=== PATIENT | female | born 1950 | race Caucasian/White ===

== ENCOUNTER 2024-01-18 16:18 | Emergency (ER) | payer OTHER, SELFPAY ==
[2024-01-18] VITALS (8 sets, daily range): BP systolic 131–140; BP diastolic 74–77; PULSE 79–86; RESP 18; TEMP 36.4; O2SAT 91–100
--- NOTE | ~2024-01-18 | CT_ITS ---
EXAMINATION: CT brain wo con DATE: 01/18/2024 16:45 INDICATION: Head injury TECHNIQUE: Computed tomography (CT) of the head was performed without intravenous contrast. The mA wa s adjusted according to patient size. Iterative reconstruction technique was employed. Exam dose: 60 5.33 mGy-cm total exam DLP. COMPARISON: None FINDINGS: There is a posterior left parietal cephalohematoma. No coup or contrecoup intracranial inju ry is detected. No intracranial mass lesion or hemorrhage or cerebrovascular accident is detected. Normal ventricular size. No subdural or epidural hematoma. There is vertebral and carotid siphon internal carotid artery calcification. There is nonspecific dim inished attenuation the cerebral white matter, likely due to chronic small vessel ischemic changes. The included paranasal sinuses and the mastoid air cells are normally developed and aerated. There is a an approximately 2.3 cm lytic lesion of the right frontal bone suggesting metastasis or pl asmacytoma/multiple myeloma. IMPRESSION: Prominent lytic lesion of the right frontal bone suggesting metastasis or plasmacytoma/m ultiple myeloma Posterior left parietal cephalohematoma No skull fracture or acute intracranial finding Cerebral atherosclerosis and chronic small vessel ischemic changes of the cerebral white matter Reviewed, dictated and finalized at [facility] Reviewed, dictated and finalized at [facility]. IMPRESSION: Prominent lytic lesion of the right frontal bone suggesting metast asis or plasmacytoma/multiple myeloma Posterior left parietal cephalohematoma No skull fracture or acute intracranial finding Cerebral atherosclerosis and chronic small vessel ischemic changes of the cereb ral white matter
--- NOTE | 2024-01-18 16:33 | ED_ITS ---
HPI - Head Injury General Chief complaint: Head Injury <Joseph Hale MD - Last Filed: 01/18/24 18:08> Stated complaint: fall hit head on a blood thinner <Joseph Hale MD - Last Filed: 01/18/24 18:08> Time Seen by Provider: 01/18/24 16:27 <Joseph Hale MD - Last Filed: 01/18/24 18:08> History of Present Illness HPI Narrative: Patient is a 73-year-old female who presents ER after striking head on the ground. She was at the [facility] when she stepped backwards and hit her head. She did not lose consciousness. She did feel dizzy when she turned her head to the right side. No neck pain. No dizziness at this time. No headache. She did land on her buttock as well and did not have pain the her buttock is become a bit achy since then. <Joseph Hale MD - Last Filed: 01/18/24 18:08> Related Data Allergies/Adverse reactions: Allergies Allergy/AdvReac Type Severity Reaction Status Date / Time No Known Allergies Allergy Unverified 06/04/15 22:53 <Joseph Hale MD - Last Filed: 01/18/24 18:08> Review of Systems Constitutional: Constitutional: Reports no additional constitutional complaints <Joseph Hale MD - Last Filed: 01/18/24 18:08> Cardiovascular: Cardiovascular: Reports no additional cardiovascular complaints <Joseph Hale MD - Last Filed: 01/18/24 18:08> Respiratory: Respiratory: Reports no additional respiratory complaints <Joseph Hale MD - Last Filed: 01/18/24 18:08> Neurologic: Reports system reviewed and no additional complaints, except as documented <Joseph Hale MD - Last Filed: 01/18/24 18:08> PMFSH Past Medical History Medical History: Medical History (Updated 01/18/24 @ 18:08 by Joseph Hale MD) DVT (deep venous thrombosis) Hyperlipidemia <Joseph Hale MD - Last Filed: 01/18/24 18:08> Exam Narrative: GENERAL: Well-appearing, well-nourished, and in no acute distress. HEAD: Normocephalic, soft tissue swelling posterior scalp. ENT: Mucous membranes moist. NECK: No midline tenderness, FROM that is painless. CHEST: Clear to auscultation. No respiratory distress. HEART: Regular rate and rhythm. Normal peripheral pulses. EXTREMITIES: Normal range of motion. No edema. SKIN: Warm, dry, no rash. NEURO: Alert and oriented x3. PSYCH: Normal mood and affect. <Joseph Hale MD - Last Filed: 01/18/24 18:08> Course Course Emergency Course: Patient resting comfortably. Awaiting CT results. <Joseph Hale MD - Last Filed: 01/18/24 18:08> Vital Signs Vital signs: Vital Signs Temperature 36.4 C 01/18/24 16:24 Pulse Rate 79 01/18/24 16:24 Respiratory Rate 18 01/18/24 16:24 Blood Pressure 140/77 01/18/24 16:24 Pulse Oximetry 100 01/18/24 16:24 Oxygen Delivery Room Air 01/18/24 16:24 Temperature 36.4 C 01/18/24 16:24 Pulse Rate 86 01/18/24 18:40 Respiratory Rate 18 01/18/24 18:40 Blood Pressure 131/74 01/18/24 18:40 Pulse Oximetry 99 01/18/24 18:40 Oxygen Delivery Room Air 01/18/24 16:24 <Joseph Hale MD - Last Filed: 01/18/24 18:08> Vital Signs Temperature 36.4 C 01/18/24 16:24 Pulse Rate 79 01/18/24 16:24 Respiratory Rate 18 01/18/24 16:24 Blood Pressure 140/77 01/18/24 16:24 Pulse Oximetry 100 01/18/24 16:24 Oxygen Delivery Room Air 01/18/24 16:24 Temperature 36.4 C 01/18/24 16:24 Pulse Rate 86 01/18/24 18:40 Respiratory Rate 18 01/18/24 18:40 Blood Pressure 131/74 01/18/24 18:40 Pulse Oximetry 99 01/18/24 18:40 Oxygen Delivery Room Air 01/18/24 16:24 <Thomas Alba MD - Last Filed: 01/18/24 18:50> MDM - Head Injury MDM Narrative Medical decision making narrative: Differential diagnosis includes intracranial hemorrhage, head injury CT head showed Prominent lytic lesion of the right frontal bone suggesting metastasis or plasmacytoma/multiple myeloma Posterior left parietal cephalohematoma No skull fracture or acute intracranial finding Cerebral atherosclerosis and chronic small vessel ischemic changes of the cerebral white matter It was explained to the patient there is no bleeding in the brain and there was a lytic lesion in her frontal bone this will need short-term follow up. It was explained to the patient this could be cancer and that knees expedited evaluation as an outpatient. <Thomas Alba MD - Last Filed: 01/18/24 18:50> Discharge Plan Discharge Clinical Impression: Minor head injury <Joseph Hale MD - Last Filed: 01/18/24 18:08> Patient Disposition: Home, Self-Care <Joseph Hale MD - Last Filed: 01/18/24 18:08> Condition: Stable <Joseph Hale MD - Last Filed: 01/18/24 18:08> Instructions: Head Injury (ED) <Joseph Hale MD - Last Filed: 01/18/24 18:08> Additional Instructions: Return ER if you lose consciousness, you cannot keep down food/water/medication, or you have additional concerns. The CT scan showed that there is a lytic lesion and the frontal bone area of her skull. This could be multiple different things including things such as cancer. This will need close follow-up with additional testing that can be arranged by your primary care provider. It is absolutely important that you follow-up and have this fully evaluated <Joseph Hale MD - Last Filed: 01/18/24 18:08> Follow-up/Referrals: PHYSICIAN NOT ON STAFF,NONSTAFF [Non-Staff] - 1 Week <Joseph Hale MD - Last Filed: 01/18/24 18:08> Time of Disposition: 18:50 <Joseph Hale MD - Last Filed: 01/18/24 18:08> 18:50 <Thomas Alba MD - Last Filed: 01/18/24 18:50>
--- NOTE | 2024-01-18 18:43 | PC.NURSE ---
Patient ambulated to the restroom with steady gate
== END 2024-01-18 19:02 | disposition home or self-care (01) ==
PROVIDERS: Emergency Provider Emergency Medicine
DX: S09.90XA Unspecified injury of head, initial encounter (principal); W18.30XA Fall on same level, unspecified, initial encounter; E78.5 Hyperlipidemia, unspecified; Z86.718 Personal history of other venous thrombosis and embolism
CPT/HCPCS: 70450; 99284

== ENCOUNTER 2025-02-09 01:59 | Day surgery (SDC) | payer OTHER, SELFPAY ==
[2025-02-05 13:15] VITALS: BMI 26.8
--- NOTE | 2025-02-05 14:16 | PC.NURSE ---
Spoke with Patient regarding medication Xarelto. Patient verbalizes understanding that the last dose is to be taken on 02/06/2025 and the Endoscopist will instruct them when to restart after the procedure.
[2025-02-09 13:00] VITALS: BP 146/80; PULSE 75; RESP 18; TEMP 36.1; O2SAT 98; BMI 26.2
[2025-02-09] MEDS: LACTATED RINGERS 1,000 ML 150 ML IV CONT (13:19)
--- NOTE | 2025-02-09 13:33 | WPDANESEPPF ---
Anes - Initial Pre Proc Eval Procedure: Operation Date: 02/09/25 14:00 Proposed Procedures p Screening Colonoscopy - Hakan Thacker MD Date/Time: 02/09/25 13:33 Surgeon: Hakan Thacker MD Pre Op Diagnosis: Positive Cologuard Patient Data Age: 74 Gender: F Height: 1.65 m Weight: 71.6 kg Last Vital Signs Temp 96.9 F L 02/09/25 13:00 Pulse 75 02/09/25 13:00 Resp 18 02/09/25 13:00 BP 146/80 H 02/09/25 13:00 Pulse Ox 98 02/09/25 13:00 O2 Del Method Room Air 02/09/25 13:00 Allergies Allergy/AdvReac Type Severity Reaction Status Date / Time No Known Allergies Allergy Verified 02/09/25 13:09 Home Medications ?Medication ?Instructions ?Recorded ?Confirmed ?Type calcium carbonate 600 mg PO BID 02/05/25 02/09/25 History cholecalciferol (vitamin D3) 25 1,000 unit PO DAILY 02/05/25 02/09/25 History mcg (1,000 unit) capsule (Vitamin D3) fluticasone propionate 50 2 spray intranasal DAILY PRN 02/05/25 02/05/25 History mcg/actuation nasal allergy symptoms spray,suspension rivaroxaban 15 mg tablet (Xarelto) 15 mg PO QPM 02/05/25 02/09/25 History rosuvastatin 10 mg tablet 10 mg PO DAILY 02/05/25 02/09/25 History Patient hx anesthesia problems: none Family hx anesthesia problems: none Results Review: All pre-operative results and documents have been reviewed as part of the pre-operative evaluation. [facility] Past Medical History Medical History Hyperlipidemia DVT (deep venous thrombosis) Social History Social History Smoking status: Never smoker Alcohol intake: current Substance use: never Living arrangements: with family Spiritual care concerns: No Anes - Eval Final PreProcedure Day of Procedure 02/09/25 13:33 Patient weight: normal Lungs: normal air movement Airway: Mallampati scale class II Neurological: alert and oriented Last oral intake: >/= 8 hours ASA classification: II Emergent: no Anesthetic plan: proceed Anesthesia type and monitoring: general GIVS and standard monitoring Results Review: All pre-operative results and documents have been reviewed as part of the pre-operative evaluation. Hyperlipidemia, overall good ET, no cp or sob. Informed Consent: The patient's anesthetic plan and its attendant risks and benefits were discussed with the patient/family/POA. Questions were solicited and answers provided to the satisfaction of the patient/family/POA.
--- NOTE | 2025-02-09 13:43 | PM.HPGS ---
History of Present Illness History of Present Illness Consent: Risks, benefits, and alternatives have been discussed and questions answered. Patient agrees to proceed with procedure. Chief complaint: Positive Cologuard Narrative: Catie Dillard is a 74 year old female with + cologuard, last colonoscopy 11 years ago Review of Systems Review of Systems: All systems reviewed & are unremarkable except as noted in HPI and below PMFSH Past Medical History Medical History (Updated 02/09/25 @ 13:44 by Hakan Thacker MD) Positive colorectal cancer screening using Cologuard test Hyperlipidemia DVT (deep venous thrombosis) Social History Social History Smoking status: Never smoker Alcohol intake: current Substance use: never Living arrangements: with family Spiritual care concerns: No Meds Home Medications and Allergies Home Medications ?Medication ?Instructions ?Recorded ?Confirmed ?Type calcium carbonate 600 mg PO BID 02/05/25 02/09/25 History cholecalciferol (vitamin D3) 25 1,000 unit PO DAILY 02/05/25 02/09/25 History mcg (1,000 unit) capsule (Vitamin D3) fluticasone propionate 50 2 spray intranasal DAILY PRN 02/05/25 02/05/25 History mcg/actuation nasal allergy symptoms spray,suspension rivaroxaban 15 mg tablet (Xarelto) 15 mg PO QPM 02/05/25 02/09/25 History rosuvastatin 10 mg tablet 10 mg PO DAILY 02/05/25 02/09/25 History Allergies Allergy/AdvReac Type Severity Reaction Status Date / Time No Known Allergies Allergy Verified 02/09/25 13:09 Vital Signs Vital Signs - 24 hr 02/09/25 13:00 Temperature 96.9 F L Pulse Rate 75 Respiratory Rate 18 Blood Pressure 146/80 H Pulse Oximetry 98 Oxygen Delivery Room Air Exam Const: General: comfortable and no acute distress HENMT: Face/Nose/Sinus: Normal nares present Resp: Auscultation: clear to auscultation bilaterally Cardio: Rate: regular rate Rhythm: regular rhythm GI: Inspection: non-distended GI Palp: Yes Soft to palpation Skin: General skin exam: normal color Extrem: General: normal to inspection Psych: Mental Status: mental status grossly normal Assessment and Plan Assessment and plan (1) Positive colorectal cancer screening using Cologuard test: Code(s): R19.5 - Other fecal abnormalities Status: Acute Assessment and Plan: colonoscopy
--- NOTE | 2025-02-09 14:19 | S_PTH ---
PATIENT: Catie Dillard LOC: [facility]#:[id number] AGE/SX: 74/F ROOM: RE02/09/[address]: Hakan Thacker MD : 1950 BED: DIS: 02/09/2025 SPEC #: [id number] RECD: 02/10/25 08:05 STATUS: TIBURCIO SIFUENTES #: [id number] EARL: 02/09/25 14:[address]: Hakan Thacker DEPT: [facility] Surgical RECD BY: Judy Holladn Tissues: A - Colon Polypectomy Procedures: Hematoxylin and Eosin Stain Gross and Microscopic Level 4
[2025-02-09 14:24] VITALS: BP 112/76; PULSE 76; RESP 18; O2SAT 98
[2025-02-09 14:34] VITALS: BP 127/70; PULSE 68; RESP 17; O2SAT 98
[2025-02-09 14:44] VITALS: BP 137/70; PULSE 66; RESP 13; O2SAT 98
== END 2025-02-09 14:54 | disposition home or self-care (01) ==
PROVIDERS: Visit Provider Internal Medicine Gastroenterology
PROC: 0DJD8ZZ Inspection of Lower Intestinal Tract, Via Natural or Artificial Opening Endoscopic (ICD-10-PCS; CPT 45378; principal; 2025-02-09 14:00)
DX: R19.5 Other fecal abnormalities (principal); D12.3 Benign neoplasm of transverse colon; K64.8 Other hemorrhoids; E78.5 Hyperlipidemia, unspecified; Z79.01 Long term (current) use of anticoagulants; Z86.718 Personal history of other venous thrombosis and embolism
CPT/HCPCS: 45385; 88305; J2003; J2704; J7120